=== PATIENT | female | born 1940 | race Caucasian/White ===

== ENCOUNTER 2016-09-17 08:37 | Outpatient (CLI) | payer MEDICARE, OTHER | END 2016-09-17 08:38 | disposition home or self-care (01) | DX: E78.2 Mixed hyperlipidemia (principal) ==

== ENCOUNTER 2016-11-21 16:36 | Emergency (ER) | payer MEDICARE, OTHER ==
[2016-11-21] MEDS ORDERED: HEPARIN 5,000 UNIT/ML VIAL IVP ONE (16:53)
[2016-11-21] MEDS ORDERED: NITROGLYCERIN SL 0.4 MG TABLET SL STA ×2 (16:53→17:38)
[2016-11-21] MEDS ORDERED: ASPIRIN CHEW 81 MG TABLET PO STA (16:53)
[2016-11-21] MEDS ORDERED: SODIUM CHLORIDE 0.9% 1,000 ML IV ONE (16:53)
[2016-11-21] MEDS ORDERED: HEPARIN 5,000 UNIT/ML VIAL ONE (16:58)
[2016-11-21] MEDS ORDERED: ASPIRIN CHEW 81 MG TABLET ONE (16:58)
[2016-11-21] MEDS ORDERED: NITROGLYCERIN SL 0.4 MG TABLET SL ONE (16:58)
[2016-11-21] MEDS ORDERED: HEPARIN 25,000 UNITS/500 ML 500 ML IV STA (17:01)
[2016-11-21] MEDS ORDERED: HEPARIN 25,000 UNITS/500 ML 500 ML IV ONE (17:04)
[2016-11-21] MEDS ORDERED: CLOPIDOGREL 300 MG TABLET PO STA (17:07)
[2016-11-21] MEDS ORDERED: CLOPIDOGREL 300 MG TABLET PO ONE (17:07)
== END 2016-11-21 17:20 | disposition short-term general hospital (02) ==
DX: I21.3 ST elevation (STEMI) myocardial infarction of unspecified site (principal); I10 Essential (primary) hypertension; E78.00 Pure hypercholesterolemia, unspecified; M19.90 Unspecified osteoarthritis, unspecified site
CPT/HCPCS: 36415; 71010; 80053; 83690; 84484; 85025; 93005; 93010; 96374; 96376; 99284; 99285; A9270

== ENCOUNTER 2016-11-21 17:26 | Outpatient (CLI) | payer MEDICARE, OTHER | END 2016-11-21 17:27 | disposition short-term general hospital (02) | DX: I21.3 ST elevation (STEMI) myocardial infarction of unspecified site (principal) | CPT/HCPCS: A0425; A0427 ==

== ENCOUNTER 2016-12-02 08:28 | Outpatient (CLI) | payer MEDICARE, OTHER | END 2016-12-02 08:29 | disposition home or self-care (01) | DX: I25.10 Atherosclerotic heart disease of native coronary artery without angina pectoris (principal); I48.0 Paroxysmal atrial fibrillation ==

== ENCOUNTER 2016-12-19 09:07 | Outpatient (CLI) | payer MEDICARE, OTHER | END 2016-12-19 09:08 | disposition home or self-care (01) | DX: I34.0 Nonrheumatic mitral (valve) insufficiency (principal) ==

== ENCOUNTER 2017-02-16 08:23 | Outpatient (CLI) | payer MEDICARE, OTHER ==
[2017-02-16 12:42] LABS: BASOPHILS % (AUTO) 0.7 %; EOSINOPHILS # (AUTO) 0.3 10^3/uL (0.0-0.7); EOSINOPHILS % (AUTO) 4.3 %; HCT - HEMATOCRIT 31.3 % (37.0-47.0); HGB - HEMOGLOBIN 10.3 g/dL (12.0-16.0); LYMPHOCYTES # (AUTO) 2.2 10^3/uL (1.5-3.5); LYMPHOCYTES % (AUTO) 31.3 %; MEAN CORPUSCULAR HEMOGLOBIN 29.7 pg (27.0-31.0); MEAN CORPUSCULAR HGB CONC 32.7 g/dL (32.0-36.0); MEAN CORPUSCULAR VOLUME 90.9 fL (81.0-99.0); MONOCYTES # (AUTO) 0.7 10^3/uL (0.0-1.0); MONOCYTES % (AUTO) 10.1 %; NEUTROPHILS # (AUTO) 3.7 10^3/uL (1.5-6.6); NEUTROPHILS % (AUTO) 53.6 %; NUCLEATED RED BLOOD CELLS AUTO 0.1 /100WBC; RED BLOOD COUNT 3.45 10^6/uL (4.20-5.40); RED CELL DISTRIBUTION WIDTH 14.2 % (12.0-15.0)
[2017-02-16 13:05] LABS: ALBUMIN/GLOBULIN RATIO 1.2 (1.0-2.2); BILIRUBIN,TOTAL 0.7 mg/dL (0.2-1.0); BUN - BLOOD UREA NITROGEN 17 mg/dL (6-20); CALCIUM 8.8 mg/dL (8.5-10.3); CARBON DIOXIDE - CO2 26 mmol/L (21-32); CHLORIDE 103 mmol/L (101-111); CHOL/HDL RATIO 2.9 (<4.4); CHOLESTEROL 137 mg/dL; CREATININE 0.8 mg/dL (0.4-1.0); GFR - MDRD 70 (>89); GLUCOSE 97 mg/dL (70-100); HDL CHOLESTEROL 47 mg/dL; LDL/HDL RATIO 1.5 (<4.4); POTASSIUM 3.9 mmol/L (3.5-5.0); SODIUM 138 mmol/L (135-145); TOTAL PROTEIN 6.7 g/dL (6.7-8.2); TRIGLYCERIDES 94 mg/dL; VLDL CHOLESTEROL 19 mg/dL
== END 2017-02-16 08:24 | disposition home or self-care (01) ==
LOC: LAB.WCP 08:23
PROVIDERS: ATTEND Physician Assistant
DX: I25.5 Ischemic cardiomyopathy (principal); I25.810 Atherosclerosis of coronary artery bypass graft(s) without angina pectoris; Z95.1 Presence of aortocoronary bypass graft; I48.0 Paroxysmal atrial fibrillation
CPT/HCPCS: 36415; 80053; 80061; 85025

== ENCOUNTER 2017-02-23 17:21 | Observation (INO) | payer MEDICARE, OTHER ==
--- NOTE | 2017-02-23 17:54 | ED Physician Documentation ---
PD HPI DYSPNEA - Stated complaint Stated Complaint: LT LEG SWELLING - Chief complaint Chief Complaint: Cardiac - History obtained from History obtained from: Patient - History of Present Illness Timing - onset: Other (6 weeks out from a three-vessel coronary bypass. Was on Lasix preoperatively but is not currently. Over last 3 days after camping trip she developed left greater than right pedal edema with some dyspnea on exertion and orthopnea not associated with increased pain. She has not been checking her weights routinely.) Review of Systems Ten Systems: 10 systems reviewed and negative Constitutional: denies: Fever, Chills Cardiac: reports: Pedal edema. denies: Chest pain / pressure, Palpitations, Calf pain Respiratory: reports: Dyspnea. 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 HAND: Tubal ligation HEENT: Tonsil/Adenoidectomy - Present Medications Home Medications: Ambulatory Orders Medication Instructions Recorded Confirmed Amiodarone [Pacerone] 200 mg ORAL BID 02/23/17 02/23/17 Aspirin Chewable [St Zia 81 mg ORAL DAILY 02/23/17 02/23/17 Aspirin] Atorvastatin [Lipitor] 40 mg ORAL DAILY 02/23/17 02/23/17 Clopidogrel [Plavix] 75 mg ORAL DAILY 02/23/17 02/23/17 Lisinopril 2.5 mg ORAL BID 02/23/17 02/23/17 Metoprolol Tartrate 25 mg ORAL BID 02/23/17 02/23/17 Pantoprazole [Protonix] 40 mg ORAL DAILY 02/23/17 02/23/17 - Allergies Allergies/Adverse Reactions: Allergies Allergy/AdvReac Type Severity Reaction Status Date / Time Sulfa (Sulfonamide Allergy Intermediate Rash Verified 11/21/16 16:45 Antibiotics) - Social History Does the pt smoke?: No Smoking Status: Never smoker Does the pt drink ETOH?: Yes Does the pt have substance abuse?: No - Immunizations Immunizations are current?: No Immunizations: TDAP >10years/unknown - POLST Patient has POLST: No PD ED PE NORMAL - Vitals Vital signs reviewed: Yes - General General: Alert and oriented X 3, No acute distress - Neck Neck: Other (++JVD) - Cardiac Cardiac: RRR, No murmur - Respiratory Respiratory: Other (Mild basilar rales) - Abdomen Abdomen: Non tender - Extremities Extremities: Other (Mod L>R pedal edema, no calf TTP) - Neuro Neuro: Alert and oriented X 3, Normal speech - Psych Psych: Normal mood, Normal affect Results - Vitals Vitals: Vital Signs - 24 hr 02/23/17 02/23/17 02/23/17 17:29 18:37 19:20 Temperature 36 C L Heart Rate 76 77 90 Respiratory 14 18 21 Rate Blood Pressure 128/74 123/69 142/87 H O2 Saturation 100 94 87 L 02/23/17 19:31 Temperature Heart Rate 91 Respiratory 20 Rate Blood Pressure 142/87 H O2 Saturation 97 Oxygen O2 Source Nasal cannula Oxygen Flow Rate 2 - EKG (time done) 1817 Rate: Rate (enter#) (77) Rhythm: NSR (with PVCs) Winifred: LAD Intervals: Wide QRS Ischemia: No: ST elevation c/w ischemia Computer interpretation: Agree with computer - Labs Labs: Laboratory Tests 02/23/17 02/23/17 02/23/17 18:24 18:24 18:24 WBC RBC Hgb Hct MCV MCH MCHC RDW Plt Count MPV Neut # Lymph # [place] # Eos # Baso # Absolute Nucleated RBC Nucleated RBCs Sodium 139 Potassium 3.8 Chloride 104 Carbon Dioxide 26 Anion Gap 9.0 BUN 15 Creatinine 0.7 Estimated GFR (MDRD) 81 L Glucose 130 H Calcium 9.0 Troponin I 0.08 B-Natriuretic Peptide 1330 H 02/23/17 19:19 WBC 8.4 RBC 3.87 L Hgb 11.0 L Hct 34.9 L MCV 90.2 MCH 28.4 MCHC 31.4 L RDW 14.3 Plt Count 400 MPV 8.5 Neut # 5.4 Lymph # 1.9 [place] # 1.0 Eos # 0.1 Baso # 0.1 Absolute Nucleated RBC 0.00 Nucleated RBCs 0.0 Sodium Potassium Chloride Carbon Dioxide Anion Gap BUN Creatinine Estimated GFR (MDRD) Glucose Calcium Troponin I B-Natriuretic Peptide - Rads (name of study) 2v chest Radiology: EMP read contemporaneously DVT doppler Radiology: EMP read contemporaneously PD MEDICAL DECISION MAKING - ED course ED course: 76-year-old woman 6 weeks postop from coronary bypass presents with orthopnea, dyspnea on exertion, and pedal edema all consistent with CHF. She recently stopped her Lasix and although she says she didn't eat any differently, recently went camping, so may have increased her salt. She was not hypoxic on arrival but did have significant episodes of hypoxemia in the department going as low as 85% on room air, so spoke with Dr. Cole for admission at 715 p.m. Departure - Departure Disposition: ED Place in Observation Clinical Impression: Hypoxemia Congestive heart failure Qualifiers: Congestive heart failure type: unspecified congestive heart failure type Congestive heart failure chronicity: acute Qualified Code(s): I50.9 - Heart failure, unspecified Condition: Serious Discharge Date/Time: 02/23/17 20:34
--- NOTE | 2017-02-23 18:26 | XRAY Preliminary Report ---
Exam: XR Chest 2 View PA/LAT IMPRESSION: Large heart with small bilateral pleural effusions and overlying atelectasis. [facility] SITE ID: [id number]
--- NOTE | 2017-02-23 18:29 | XRAY Report ---
EXAM: CHEST RADIOGRAPHY EXAM DATE: 02/23/2017 06:05 PM. CLINICAL HISTORY: Dyspnea. COMPARISON: 11/21/2016. TECHNIQUE: 2 views. FINDINGS: Lungs/Pleura: New bilateral small pleural effusions with mild atelectasis. No infiltrates noted. No p neumothorax. Normal volumes. Mediastinum: Prior bypass. Large heart. Other: No compression fractures. IMPRESSION: Large heart with small bilateral pleural effusions and overlying atelectasis. [facility] Referring Provider Line: [phone] SITE ID: [id number]
[2017-02-23 18:49] LABS: CREATININE 0.7 mg/dL (0.4-1.0); POTASSIUM 3.8 mmol/L (3.5-5.0)
[2017-02-23] MEDS ORDERED: POTASSIUM BICARB 25 MEQ TABLET PO STA (19:02)
[2017-02-23] MEDS ORDERED: FUROSEMIDE 40 MG/4 ML VIAL IVP STA (19:02)
[2017-02-23] MEDS ORDERED: FUROSEMIDE 40 MG/4 ML VIAL ONE (19:08)
[2017-02-23] MEDS ORDERED: POTASSIUM BICARB 25 MEQ TABLET PO ONE (19:08)
--- NOTE | 2017-02-23 19:18 | Ultrasound Preliminary Report ---
Exam: US Duplex Ext Veins Bilateral IMPRESSION: No evidence for deep venous thrombosis bilaterally. [facility] SITE ID: [id number]
--- NOTE | 2017-02-23 19:21 | Ultrasound Report ---
EXAM: BILATERAL LOWER EXTREMITY VENOUS ULTRASOUND EXAM DATE: 02/23/2017 06:58 PM. CLINICAL HISTORY: Post surg pedal edema. COMPARISON: None. TECHNIQUE: Real-time sonographic vascular imaging was performed by the cable assembler and swager through the lower extremities utilizing both color-flow and Doppler spectral analysis. Multiple hvac sales representative static i mages were saved for review. FINDINGS: Right: Common Femoral Vein (CFV): Normal. CFV-GSV Junction: Normal. Profunda Femoral Vein (PFV): Normal. Femoral Vein (FV) Prox: Normal. Femoral Vein (FV) Mid: Normal. Femoral Vein (FV) Dist: Normal. Popliteal Vein: Normal. Posterior Tibial Veins: Normal. Peroneal Veins: Normal. Left: Common Femoral Vein (CFV): Normal. CFV-GSV Junction: Normal. Profunda Femoral Vein (PFV): Normal. Femoral Vein (FV) Prox: Normal. Femoral Vein (FV) Mid: Normal. Femoral Vein (FV) Dist: Normal. Popliteal Vein: Normal. Posterior Tibial Veins: Normal. Peroneal Veins: Normal. Other: None. IMPRESSION: No evidence for deep venous thrombosis bilaterally. [facility] Referring Provider Line: [phone] SITE ID: [id number]
[2017-02-23 19:24] LABS: BASOPHILS # (AUTO) 0.1 10^3/uL (0.0-0.1); EOSINOPHILS # (AUTO) 0.1 10^3/uL (0.0-0.7); EOSINOPHILS % (AUTO) 1.1 %; HCT - HEMATOCRIT 34.9 % (37.0-47.0); LYMPHOCYTES # (AUTO) 1.9 10^3/uL (1.5-3.5); LYMPHOCYTES % (AUTO) 22.9 %; MEAN CORPUSCULAR HEMOGLOBIN 28.4 pg (27.0-31.0); MEAN CORPUSCULAR HGB CONC 31.4 g/dL (32.0-36.0); MEAN CORPUSCULAR VOLUME 90.2 fL (81.0-99.0); MEAN PLATELET VOLUME 8.5 fL (7.9-10.8); MONOCYTES % (AUTO) 11.5 %; NEUTROPHILS # (AUTO) 5.4 10^3/uL (1.5-6.6); NEUTROPHILS % (AUTO) 63.5 %; RED BLOOD COUNT 3.87 10^6/uL (4.20-5.40); RED CELL DISTRIBUTION WIDTH 14.3 % (12.0-15.0); UNCORRECTED WHITE BLOOD COUNT 8.4 x10^3/uL; WHITE BLOOD COUNT 8.4 x10^3/uL (4.8-10.8)
[2017-02-23] MEDS ORDERED: SODIUM CHLORIDE FLUSH 0.9% 10 ML SYRINGE IVP PRN (20:01)
[2017-02-23] MEDS ORDERED: ONDANSETRON 4 MG/2 ML VIAL IVP PRN (20:01)
[2017-02-23] MEDS ORDERED: ACETAMINOPHEN 325 MG TABLET PO PRN (20:01)
--- NOTE | 2017-02-23 20:19 | HISTORY & PHYSICAL EXAMINATION ---
Chief Complaint - Chief Complaint Chief Complaint: shortness of breath History of Present Illness - Admitted From Admitted From:: ed - History Obtained From Records Reviewed: EMR History obtained from: the patient and records Exam Limitations: none - History of Present Illness HPI Comment/Other: this 76-year-old female had a a prior ST elevation [place] in November of 2016.,, and underwent a stent placement at [facility]. She subsequently was transferred to [facility] ,, where she underwent a three-vessel coronary artery bypass graft about 6 weeks ago. She was started on several medications but was weaned off of her Lasix prior to discharge. she believes she had postop atrial fibrillation as well. She recently went camping, but began to experience shortness of breath and orthopnea, as well as peripheral edema for the last 2 days. She says she has felt increased fatigue, and slight nausea, significant dyspnea with exertion, as well as orthopnea. She has been feeling cold ever since she left the hospital. She has had a mild headache. She had some vision issues after surgery , but says those have resolved. Her appetite has been good. She denies any chest pain or palpitations, but is still sore from her thoracotomy..They harvested veins in her left lower extremity, and those sites are healed, but also still sore. She has noticed some increased edema of her ankles, left greater than right. She says they have been eating the same food on their camping trip as they normally, and she does not eat added salt. Otherwise, she denies new eye or ear symptoms,, fever, sore throat, cough, difficulty chewing or swallowing,, abdominal pain, vomiting, diarrhea or constipation, or dysuria. .. Oxygen saturation on room air in the emergency room was 85%. BNP is elevated. Initial troponin is normal. EKG does not show any new ischemic changes Past medical history: Hyperglycemia Osteoporosis Hypertension Aortic stenosis Colon polyps restless leg syndrome Coronary artery disease, ST elevation [place] in November of 2016, status post stenting, , and two-vessel CABG in December 2016 Hyperlipidemia medications: Metoprolol 25 mg by mouth twice a day Lipitor 40 mg daily lisinopril 2.5 mg twice a day Plavix 75 mg daily Amiodarone 200 mg twice a day Protonix 40 mg daily Aspirin 81 mg daily Allergies: Sulfa. family history: mother after bilateral clotting of her kidneys. Father with some type of cancer in his adonis.. There is heart disease on her fat. She has one sister who is alive an I believe she has 3 children, who are alive and well. social history: she denies any tobacco history, and She drinks about one glass of wine. She was born in [place], but now lives here on [facility] with her . 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: reports: Tubal ligation Cardiovascular: reports: CABG HEENT: reports: Tonsil/Adenoidectomy - POLST Patient has POLST: No Meds/Allgy - Home Medications Home Medications: Ambulatory Orders Medication Instructions Recorded Confirmed Amiodarone [Pacerone] 200 mg ORAL BID 02/23/17 02/23/17 Aspirin Chewable [St Zia 81 mg ORAL DAILY 02/23/17 02/23/17 Aspirin] Atorvastatin [Lipitor] 40 mg ORAL DAILY 02/23/17 02/23/17 Clopidogrel [Plavix] 75 mg ORAL DAILY 02/23/17 02/23/17 Lisinopril 2.5 mg ORAL BID 02/23/17 02/23/17 Metoprolol Tartrate 25 mg ORAL BID 02/23/17 02/23/17 Pantoprazole [Protonix] 40 mg ORAL DAILY 02/23/17 02/23/17 - Allergies Allergies/Adverse Reactions: Allergies Allergy/AdvReac Type Severity Reaction Status Date / Time Sulfa (Sulfonamide Allergy Intermediate Rash Verified 11/21/16 16:45 Antibiotics) Exam - Vital Signs Vital Signs: Vital Signs x48h Temp Pulse Resp BP Pulse Ox 02/23/17 19:31 91 20 142/87 H 97 02/23/17 19:20 90 21 142/87 H 87 L 02/23/17 18:37 77 18 123/69 94 02/23/17 17:29 36 C L 76 14 128/74 100 on exam, she is a well-developed well-nourished female, who appears younger than her stated age.. Head: Normocephalic,, atraumatic. Eyes: PERRLA, EOMI, anicteric. Ears: TMs and canals are clear. Pharynx: Is clear. She has full upper and lower dentures. Neck: Is supple, without obvious lymphadenopathy, JVD, thyromegaly, bruits. Cardiac: Shows regular rate and rhythm, with normal S1 and S2. No murmurs, rubs , gallops are noted. Midline thoracotomy scar is well-healed, the area is warp scouring vat tender. Lungs: Show fine crackles about one third the way up, and both posterior lung valdez.. No rhonchi or wheezes are noted. There is no accessory muscle use.. Abdomen: Is soft and nontender, without masses.. Bowel sounds are active. Extremities: There is a trace edema at both ankles, left greater than right.. The venectomy scars on the left thigh are well-healed.. Neurologic: Is grossly nonfocal. Skin exam: Does not show obvious rashes, or other worrisome lesions. Conclusion/Plan - Problem List (1) Congestive heart failure Qualifiers: Congestive heart failure type: unspecified congestive heart failure type Congestive heart failure chronicity: acute Qualified Code(s): I50.9 - Heart failure, unspecified (3) CAD (coronary artery disease), [place] coronary artery Qualifiers: [place] vs. transplanted heart: [place] heart Associated angina: without angina Qualified Code(s): I25.10 - Atherosclerotic heart disease of [place] coronary artery without angina pectoris - Lab Results Fish Bones: 02/23/17 19:19 02/23/17 18:24 Other Lab Results: BNP is elevated at 1330 Troponin is normal at 0.08 Lipid panel from February 16: Total cholesterol 137, VLDL 19, LDL 71, HDL 47 December 02: TSH is normal at 1.42 ower extremity Doppler colon is read as nl chest x-ray: Shows cardiomegaly with small bilateral pleural effusions and overlying atelectasis. No definite infiltrates. Evidence of prior bypass noted. EKG shows sinus rhythm at a rateof 77 ,, with left axis deviation, occasional PVCs, low voltage, nonspecific intraventricular conduction delay December,: Echocardiogram: Left ventricular systolic function with ejection fraction of 65% normal right ventricle,, mild mitral regurgitation. - Other Other Results/Comments: assessment and plan: #1. Cardiac. -Patient presents with dyspnea and hypoxia, consistent with new onset congestive heart failure. She is status post recent [place] and bypass surgery. She appears to be on an appropriate medical regimen, but is not on a diuretic. It is unclear if she has an having increased salt intake during her recent travels, but she does not think so. -Admit to telemetry, for closer observation. -Check serial enzymes. -Diurese with IV Lasix. -Monitor electrolytes. -Oxygen when necessary -Continue metoprolol, Lipitor, lisinopril, Plavix, amiodarone,, aspirin #2. endocrine. History of hyperglycemia. Monitor Accu-Cheks. #3. Osteoporosis. Continue calcium and vitamin D. #4. History of hypertension. Monitor closely. Continue metoprolol, aspirin, lisinopril,, aspirin #5. History of restless leg syndrome. #6. CODE STATUS:full code,, though she would not want long-term life support. #7. DVT prophylaxis: Subcutaneous heparin. THIS VISIT TOOK APPROXIMATELY 60 MINUTES to review the case with the er blank, review her old records, INTERVIEW AND EXAMINE THE PATIENT,, AND WRITE ORDERS. Issues/Core Measures - Anticipated LOS Anticipated Stay Length: Less than 2 midnights - DVT/VTE - Prophylaxis VTE/DVT Device ordered at admit?: No VTE/DVT Prophylaxis med ordered at admit?: Yes
[2017-02-23] MEDS ORDERED: FUROSEMIDE 20 MG/2 ML VIAL IVP SCH (21:00)
[2017-02-23] MEDS: SODIUM CHLORIDE FLUSH 0.9% 10 ML SYRINGE IVP SCH (22:00)
[2017-02-23] MEDS: HEPARIN 5,000 UNIT/ML VIAL SUBQ SCH (22:14)
[2017-02-24] MEDS: SODIUM CHLORIDE FLUSH 0.9% 10 ML SYRINGE IVP SCH ×2 (05:40→09:20)
[2017-02-24 07:25] LABS: BASOPHILS # (AUTO) 0.1 10^3/uL (0.0-0.1); BASOPHILS % (AUTO) 1.2 %; EOSINOPHILS # (AUTO) 0.2 10^3/uL (0.0-0.7); EOSINOPHILS % (AUTO) 2.2 %; HCT - HEMATOCRIT 32.9 % (37.0-47.0); HGB - HEMOGLOBIN 10.7 g/dL (12.0-16.0); LYMPHOCYTES # (AUTO) 1.7 10^3/uL (1.5-3.5); LYMPHOCYTES % (AUTO) 21.7 %; MEAN CORPUSCULAR HEMOGLOBIN 29.1 pg (27.0-31.0); MEAN CORPUSCULAR HGB CONC 32.4 g/dL (32.0-36.0); MEAN CORPUSCULAR VOLUME 89.8 fL (81.0-99.0); MEAN PLATELET VOLUME 8.7 fL (7.9-10.8); MONOCYTES # (AUTO) 0.9 10^3/uL (0.0-1.0); MONOCYTES % (AUTO) 10.8 %; NEUTROPHILS # (AUTO) 5.1 10^3/uL (1.5-6.6); NEUTROPHILS % (AUTO) 64.1 %; RED BLOOD COUNT 3.67 10^6/uL (4.20-5.40); RED CELL DISTRIBUTION WIDTH 14.5 % (12.0-15.0)
[2017-02-24] MEDS ORDERED: POLYETHYLENE GLYCOL 3350 17 GM PACKET PO SCH (09:00)
[2017-02-24] MEDS ORDERED: FUROSEMIDE 20 MG/2 ML VIAL IVP SCH (09:00)
[2017-02-24] MEDS: HEPARIN 5,000 UNIT/ML VIAL SUBQ SCH (09:20)
[2017-02-24] MEDS ORDERED: CLOPIDOGREL 75 MG TABLET PO SCH (10:00)
[2017-02-24 11:38] VITALS: BP 112/72
--- NOTE | 2017-02-24 12:38 | Discharge Plan ---
Discharge Plan Disposition: 01 Home, Self Care Condition: Good Prescriptions: Furosemide [Lasix] 40 mg PO DAILY #30 tablet Potassium Chloride 10 meq PO DAILY #60 capsule.er Diet: Low Sodium Activity Restrictions: Activity as Tolerated Shower Restrictions: No Driving Restrictions: No Instruction Topics: Heart Failure Meds Control, Heart Failure, Heart Failure Warning Signs, Heart Failure Tracking Weight, Heart Failure Being Active, Heart Failure Coping, Heart Failure Diet Changes, Heart Failure Evaluate, Heart Failure Helpful Meds, ED CHF General Additional Instructions or Follow Up instructions: Follow up with your brine supervisor. Call for an appt if you do not hear from them by noon tomorrow. No Smoking: If you smoke, Please STOP! Call for help. Follow-up with: Janina Davalos PA-C [Primary Care Provider] -
--- NOTE | 2017-02-25 07:37 | DISCHARGE SUMMARY ---
DATE OF ADMISSION: 02/23/2017 DATE OF DISCHARGE: 02/24/2017 PRIMARY ARE PHYSICIAN: Janina Davalos P.A.-C ACT TUTOR: Dwight Villafuerte M.D. CONSULTATIONS: None. SPECIAL PROCEDURES: The echocardiogram preliminary report findings were the patient had an EF of 45% to 50%, which according to the telephone consultation with Dwight Villafuerte M.D., has improved since her post-bypass EF, in which she had an intrasurgery coronary myocardial infarction and 40%, bu t was less than what she had on 12/25 of 65% to 70%. The sequence of her echocardiograms and the car diac stenting followed by the bypass surgery is in question. The patient had a moderate increase in the left atrial volume index. The right atrial size was normal, and there was mild aortic valve scle rosis, with trace aortic regurgitation and no evidence of aortic stenosis. Regarding the mitral valv e, there was moderate to severe mitral regurgitation with an ERO of 0.21 cm2 and regurgitant volume 4 2 mL. There was mild tricuspid, with no stenosis. RVSP at rest was 38 mmHg. The pulmonic valve was not impaired. HOSPITAL COURSE AND MANAGEMENT: The initial presentation, hospital emergency department evaluation, and hospitalist plan are well described in the history and physical. See the copy of the same. In [facility], the patient is a 75-year-old female who had an ST elevation myocardial infarction in November of 2016. She had stent placement at [facility]. She was transferred to [facility]. She u nderwent three-vessel coronary artery approximately six weeks previous to this admission. The patien flavio, during her followup, was weaned off her Lasix. The last couple of days, she went camping. She meek d shortness of breath and orthopnea. She also had increased leg edema. She felt fatigued, with some nausea. She was seen in the emergency department and was found to have new onset CHF. She was star charlie on a diuretic and placed under observation. She was on oxygen initially, but moved soon onto hari m air. She felt much better the following morning. After the echocardiogram, she was discharged albert to follow up with her PCP, Janina Davalos P.A.-C. Dwight Villafuerte M.D., was consulted by telephone, and he agreed to expedite an appointment for this delightful lady. ADMISSION DIAGNOSES The patient's admission diagnoses were: 1. Congestive heart failure. 2. Coronary artery disease. 3. Osteoporosis. 4. Hypertension. 5. Restless leg syndrome. DISCHARGE DIAGNOSES The patient's discharge diagnoses were: 1. Congestive heart failure. 2. Coronary artery disease: Status post recent myocardial infarction, stent, and bypass surgery. 3. Mild hyperglycemia: A1c is pending. 4. Osteoporosis: Continue treatment calcium and vitamin D. 5. Hypertension: Continue outpatient monitoring and assess the effectiveness of metoprolol and lisin opril. FOLLOWUP: The patient is to follow up as noted above. TIME SPENT: Less than 30 minutes. The patient was examined on the day of discharge. JOB #: [id number] EXT JOB #:[id number]
== END 2017-02-24 13:17 | disposition home or self-care (01) ==
LOC: ED 17:21 → MS 20:01
PROVIDERS: ADMIT Internal Medicine; ATTEND Internal Medicine
DX: I11.0 Hypertensive heart disease with heart failure (principal); I50.9 Heart failure, unspecified; I25.10 Atherosclerotic heart disease of native coronary artery without angina pectoris; R73.9 Hyperglycemia, unspecified; R09.02 Hypoxemia; M81.0 Age-related osteoporosis without current pathological fracture; E78.5 Hyperlipidemia, unspecified; I34.0 Nonrheumatic mitral (valve) insufficiency; G25.81 Restless legs syndrome; I25.2 Old myocardial infarction; Z79.82 Long term (current) use of aspirin; Z79.02 Long term (current) use of antithrombotics/antiplatelets; Z95.5 Presence of coronary angioplasty implant and graft; Z95.1 Presence of aortocoronary bypass graft
CPT/HCPCS: 36415; 71020; 80048; 83735; 83880; 84484; 85025; 93005; 93306; 93970; 96372; 96374; 96376; 99284; 99285; A9270; G0378; 99283

== ENCOUNTER 2017-03-04 08:01 | Outpatient (CLI) | payer MEDICARE, OTHER ==
[2017-03-04 08:33] LABS: BASOPHILS # (AUTO) 0.1 10^3/uL (0.0-0.1); BASOPHILS % (AUTO) 1.2 %; EOSINOPHILS # (AUTO) 0.2 10^3/uL (0.0-0.7); EOSINOPHILS % (AUTO) 3.2 %; HCT - HEMATOCRIT 32.1 % (37.0-47.0); HGB - HEMOGLOBIN 10.6 g/dL (12.0-16.0); LYMPHOCYTES # (AUTO) 1.8 10^3/uL (1.5-3.5); LYMPHOCYTES % (AUTO) 25.8 %; MEAN CORPUSCULAR HEMOGLOBIN 28.8 pg (27.0-31.0); MEAN CORPUSCULAR HGB CONC 32.9 g/dL (32.0-36.0); MEAN CORPUSCULAR VOLUME 87.4 fL (81.0-99.0); MEAN PLATELET VOLUME 8.2 fL (7.9-10.8); MONOCYTES # (AUTO) 0.8 10^3/uL (0.0-1.0); MONOCYTES % (AUTO) 11.3 %; NEUTROPHILS # (AUTO) 4.1 10^3/uL (1.5-6.6); NEUTROPHILS % (AUTO) 58.5 %; RED BLOOD COUNT 3.67 10^6/uL (4.20-5.40); RED CELL DISTRIBUTION WIDTH 14.8 % (12.0-15.0)
[2017-03-04 08:51] LABS: BUN - BLOOD UREA NITROGEN 19 mg/dL (6-20); CALCIUM 8.8 mg/dL (8.5-10.3); CARBON DIOXIDE - CO2 30 mmol/L (21-32); CHLORIDE 101 mmol/L (101-111); CHOL/HDL RATIO 2.9 (<4.4); CHOLESTEROL 141 mg/dL; CREATININE 0.9 mg/dL (0.4-1.0); GFR - MDRD 61 (>89); GLUCOSE 115 mg/dL (70-100); HDL CHOLESTEROL 48 mg/dL; LDL/HDL RATIO 1.6 (<4.4); POTASSIUM 4.5 mmol/L (3.5-5.0); SODIUM 138 mmol/L (135-145); TRIGLYCERIDES 72 mg/dL; VLDL CHOLESTEROL 14 mg/dL
== END 2017-03-04 08:02 | disposition home or self-care (01) ==
LOC: LAB 08:01
PROVIDERS: ATTEND Internal Medicine Interventional Cardiology
DX: R06.02 Shortness of breath (principal); E78.5 Hyperlipidemia, unspecified
CPT/HCPCS: 36415; 80048; 80061; 83880; 85025

== ENCOUNTER 2017-04-09 07:35 | Outpatient (CLI) | payer MEDICARE, OTHER ==
[2017-04-09 07:54] LABS: BASOPHILS # (AUTO) 0.1 10^3/uL (0.0-0.1); BASOPHILS % (AUTO) 1.5 %; EOSINOPHILS # (AUTO) 0.2 10^3/uL (0.0-0.7); EOSINOPHILS % (AUTO) 3.2 %; HCT - HEMATOCRIT 33.6 % (37.0-47.0); HGB - HEMOGLOBIN 10.9 g/dL (12.0-16.0); LYMPHOCYTES # (AUTO) 1.8 10^3/uL (1.5-3.5); MEAN CORPUSCULAR HEMOGLOBIN 27.5 pg (27.0-31.0); MEAN CORPUSCULAR HGB CONC 32.5 g/dL (32.0-36.0); MEAN CORPUSCULAR VOLUME 84.7 fL (81.0-99.0); MEAN PLATELET VOLUME 8.7 fL (7.9-10.8); MONOCYTES # (AUTO) 0.6 10^3/uL (0.0-1.0); MONOCYTES % (AUTO) 10.1 %; NEUTROPHILS % (AUTO) 53.2 %; RED BLOOD COUNT 3.96 10^6/uL (4.20-5.40); RED CELL DISTRIBUTION WIDTH 15.5 % (12.0-15.0); UNCORRECTED WHITE BLOOD COUNT 5.6 x10^3/uL; WHITE BLOOD COUNT 5.6 x10^3/uL (4.8-10.8)
[2017-04-09 08:37] LABS: ALBUMIN/GLOBULIN RATIO 1.2 (1.0-2.2); BILIRUBIN,TOTAL 0.5 mg/dL (0.2-1.0); CREATININE 0.8 mg/dL (0.4-1.0); POTASSIUM 4.2 mmol/L (3.5-5.0); TOTAL PROTEIN 6.9 g/dL (6.7-8.2)
== END 2017-04-09 07:36 | disposition home or self-care (01) ==
LOC: LAB 07:35
PROVIDERS: ATTEND Internal Medicine Interventional Cardiology
DX: I25.810 Atherosclerosis of coronary artery bypass graft(s) without angina pectoris (principal); R06.09 Other forms of dyspnea; Z95.1 Presence of aortocoronary bypass graft; I25.5 Ischemic cardiomyopathy; I48.0 Paroxysmal atrial fibrillation; I34.0 Nonrheumatic mitral (valve) insufficiency
CPT/HCPCS: 36415; 80053; 83880; 85025

== ENCOUNTER 2017-07-20 17:23 | Outpatient (CLI) | payer MEDICARE, OTHER ==
--- NOTE | 2017-07-21 12:40 | XRAY Report ---
LEFT HIP AND PELVIS: 07/20/2017 CLINICAL INDICATION: Pain. FINDINGS: Frontal view of the hips and pelvis and frogleg lateral view of the left hip demonstrate n o evidence of acute fracture or dislocation. Minimal osteoarthritis is present. Surgical clips are seen in the medial soft tissues of the proximal left thigh. IMPRESSION: MINIMAL OSTEOARTHRITIS. NO EVIDENCE OF FRACTURE. JOB #: [id number] EXT JOB #:[id number]
== END 2017-07-20 17:24 | disposition home or self-care (01) ==
LOC: DI 17:23
PROVIDERS: ATTEND Physician Assistant Medical
DX: M16.12 Unilateral primary osteoarthritis, left hip (principal)

== ENCOUNTER 2017-07-25 14:40 | Outpatient (CLI) | payer MEDICARE, OTHER ==
--- NOTE | 2017-07-26 05:43 | MRI Report ---
EXAM: MRI LUMBAR SPINE WITHOUT CONTRAST EXAM DATE: 07/25/2017 03:50 PM. CLINICAL HISTORY: Radiculopathy, lumbar region. COMPARISON: None. TECHNIQUE: Multiplanar, multisequence T1-weighted and fluid-sensitive sequences of the lumbar spine f rom T12 to S1 without contrast. Other: None. FINDINGS: Spinal Cord: The conus terminates at L1. The conus medullaris and cauda equina are unremarkable. Alignment: Retrolisthesis at L2-L3 measures 23 mm. Grade 1 anterolisthesis at L4-L5 also measures 2 3 mm. Bone Marrow: Five [id number] lumbar vertebral bodies are assumed. Mild type 1 Modic endplate joellen nges are noted at L4-L5. Disk Levels/Facets: T12-L1: Unremarkable. L1-L2: There is a mild disk bulge resulting mild bilateral foraminal narrowing without spinal canal s tenosis. L2-L3: There is mild left foraminal narrowing due to a left foraminal protrusion. The spinal canal an d right foramen are patent. L3-L4: A disk bulge and bilateral facet arthropathy result in mild bilateral foraminal narrowing. The spinal canal is patent. L4-L5: Anterolisthesis is present at this level with uncovering of the disk. A superimposed left para central extrusion is seen with superior migration. This causes mild spinal canal stenosis and medial displacement of the descending L5 nerve root. Facet arthropathy results in moderate bilateral foramin al narrowing, left greater than right. L5-S1: A mild disk bulge is present with moderate bilateral facet arthropathy. This results in mild l eft foraminal narrowing without spinal canal stenosis. Musculature: There is moderate diffuse fatty atrophy of the posterior paraspinal muscles without intr amuscular edema. Other: The partially visualized retroperitoneum is unremarkable. IMPRESSION: 1. Grade 1 anterolisthesis at L4-L5 with uncovering of the disk is present with a superimposed superi jeannine migrating left paracentral protrusion causes medial displacement of the descending L5 nerve root . 2. Mild multilevel degenerative changes are present at other lumbar levels without spinal canal steno sis. Comment: The following findings are so common in adults without low back pain that while we report th eir presence, they must be interpreted with caution and in the context of the clinical situation. (Re chicho Elias et al, Spine 2001) Prevalence of findings in patients without low back pain: Disk degeneration (any evidence): 92% Disk desiccation/T2 signal loss: 83% Disk height loss: 56% Disk bulge: 64% Disk protrusion: 32% Annular tear/high intensity zone: 38% [facility] Referring Provider Line: [phone] SITE ID: [id number]
== END 2017-07-25 14:41 | disposition home or self-care (01) ==
LOC: DI 14:40
PROVIDERS: ATTEND Family Medicine
DX: M47.896 Other spondylosis, lumbar region (principal); M51.26 Other intervertebral disc displacement, lumbar region; M43.16 Spondylolisthesis, lumbar region; M51.36 Other intervertebral disc degeneration, lumbar region
CPT/HCPCS: 72148

== ENCOUNTER 2017-09-21 08:04 | Outpatient (CLI) | payer MEDICARE, OTHER ==
[2017-09-21 09:05] LABS: BUN - BLOOD UREA NITROGEN 16 mg/dL (6-20); CALCIUM 9.1 mg/dL (8.5-10.3); CARBON DIOXIDE - CO2 26 mmol/L (21-32); CHLORIDE 101 mmol/L (101-111); CHOL/HDL RATIO 3.1 (<4.4); CHOLESTEROL 173 mg/dL; CREATININE 0.7 mg/dL (0.4-1.0); GFR - MDRD 81 (>89); GLUCOSE 106 mg/dL (70-100); HDL CHOLESTEROL 55 mg/dL; LDL CHOLESTEROL,CALCULATED 101 mg/dL; LDL/HDL RATIO 1.8 (<4.4); SODIUM 139 mmol/L (135-145); VLDL CHOLESTEROL 17 mg/dL
== END 2017-09-21 08:05 | disposition home or self-care (01) ==
LOC: DI 08:04
PROVIDERS: ATTEND Internal Medicine Interventional Cardiology
DX: I25.810 Atherosclerosis of coronary artery bypass graft(s) without angina pectoris (principal); I34.0 Nonrheumatic mitral (valve) insufficiency; R06.09 Other forms of dyspnea
CPT/HCPCS: 36415; 80048; 80061; 83880; 93306

== ENCOUNTER 2018-04-05 07:55 | Outpatient (CLI) | payer MEDICARE, OTHER ==
[2018-04-05 08:28] LABS: BUN - BLOOD UREA NITROGEN 18 mg/dL (6-20); CALCIUM 8.7 mg/dL (8.5-10.3); CARBON DIOXIDE - CO2 28 mmol/L (21-32); CHLORIDE 103 mmol/L (101-111); CHOL/HDL RATIO 3.2 (<4.4); CHOLESTEROL 166 mg/dL; CREATININE 0.8 mg/dL (0.4-1.0); GFR - MDRD 70 (>89); GLUCOSE 104 mg/dL (70-100); HDL CHOLESTEROL 52 mg/dL; LDL CHOLESTEROL,CALCULATED 99 mg/dL; LDL/HDL RATIO 1.9 (<4.4); SODIUM 137 mmol/L (135-145); VLDL CHOLESTEROL 15 mg/dL
== END 2018-04-05 07:56 | disposition home or self-care (01) ==
LOC: LAB 07:55
PROVIDERS: ATTEND Internal Medicine Interventional Cardiology
DX: I25.810 Atherosclerosis of coronary artery bypass graft(s) without angina pectoris (principal); R06.09 Other forms of dyspnea
CPT/HCPCS: 36415; 80048; 80061; 83721; 83880

== ENCOUNTER 2018-09-21 09:08 | Outpatient (CLI) | payer MEDICARE, OTHER | END 2018-09-21 09:09 | disposition home or self-care (01) | LOC: DI 09:08 | PROVIDERS: ATTEND Internal Medicine Interventional Cardiology | DX: I25.708 Atherosclerosis of coronary artery bypass graft(s), unspecified, with other forms of angina pectoris (principal); I34.0 Nonrheumatic mitral (valve) insufficiency | CPT/HCPCS: 93306 ==

== ENCOUNTER 2018-10-14 08:46 | Outpatient (CLI) | payer MEDICARE, OTHER ==
[2018-10-14 09:15] LABS: BUN - BLOOD UREA NITROGEN 18 mg/dL (6-20); CARBON DIOXIDE - CO2 29 mmol/L (21-32); CHLORIDE 101 mmol/L (101-111); CHOL/HDL RATIO 2.8 (<4.4); CHOLESTEROL 147 mg/dL; CREATININE 0.7 mg/dL (0.4-1.0); GFR - MDRD 81 (>89); GLUCOSE 108 mg/dL (70-100); HDL CHOLESTEROL 53 mg/dL; LDL CHOLESTEROL,CALCULATED 77 mg/dL; LDL/HDL RATIO 1.5 (<4.4); SODIUM 141 mmol/L (135-145); VLDL CHOLESTEROL 17 mg/dL
== END 2018-10-14 08:47 | disposition home or self-care (01) ==
LOC: LAB 08:46
PROVIDERS: ATTEND Internal Medicine Interventional Cardiology
DX: I25.810 Atherosclerosis of coronary artery bypass graft(s) without angina pectoris (principal)
CPT/HCPCS: 36415; 80048; 80061; 83721

== ENCOUNTER 2019-03-22 08:16 | Outpatient (CLI) | payer MEDICARE, OTHER ==
[2019-03-22 09:14] LABS: BASOPHILS # (AUTO) 0.1 10^3/uL (0.0-0.1); BASOPHILS % (AUTO) 1.3 %; EOSINOPHILS # (AUTO) 0.3 10^3/uL (0.0-0.7); HGB - HEMOGLOBIN 10.7 g/dL (12.0-16.0); LYMPHOCYTES # (AUTO) 2.1 10^3/uL (1.5-3.5); LYMPHOCYTES % (AUTO) 34.7 %; MEAN CORPUSCULAR HEMOGLOBIN 28.7 pg (27.0-31.0); MEAN CORPUSCULAR HGB CONC 31.7 g/dL (32.0-36.0); MEAN CORPUSCULAR VOLUME 90.6 fL (81.0-99.0); MEAN PLATELET VOLUME 11.1 fL (7.9-10.8); MONOCYTES # (AUTO) 0.8 10^3/uL (0.0-1.0); MONOCYTES % (AUTO) 12.9 %; NEUTROPHILS # (AUTO) 2.7 10^3/uL (1.5-6.6); NEUTROPHILS % (AUTO) 45.8 %; PLT - PLATELET COUNT 251 10^3/uL (130-450); RED BLOOD COUNT 3.73 10^6/uL (4.20-5.40); RED CELL DISTRIBUTION WIDTH 15.2 % (12.0-15.0)
[2019-03-22 09:34] LABS: ALBUMIN 3.4 g/dL (3.2-5.5); ALBUMIN/GLOBULIN RATIO 0.9 (1.0-2.2); ALKALINE PHOSPHATASE 76 IU/L (42-121); ALT ALANINE AMINOTRANSFERASE 221 IU/L (10-60); AST ASPARTATE AMINOTRANSFERASE 236 IU/L (10-42); BILIRUBIN,TOTAL 0.7 mg/dL (0.2-1.0); BUN - BLOOD UREA NITROGEN 16 mg/dL (6-20); CALCIUM 8.6 mg/dL (8.5-10.3); CARBON DIOXIDE - CO2 27 mmol/L (21-32); CHLORIDE 104 mmol/L (101-111); CHOL/HDL RATIO 2.8 (<4.4); CHOLESTEROL 116 mg/dL; CREATININE 0.7 mg/dL (0.4-1.0); GFR - MDRD 81 (>89); GLUCOSE 103 mg/dL (70-100); HDL CHOLESTEROL 41 mg/dL; LDL CHOLESTEROL,CALCULATED 62 mg/dL; LDL/HDL RATIO 1.5 (<4.4); SODIUM 140 mmol/L (135-145); TOTAL PROTEIN 7.3 g/dL (6.7-8.2); VLDL CHOLESTEROL 13 mg/dL
== END 2019-03-22 08:17 | disposition home or self-care (01) ==
LOC: LAB 08:16
PROVIDERS: ATTEND Physician Assistant Medical
DX: M81.0 Age-related osteoporosis without current pathological fracture (principal); R53.83 Other fatigue; I25.708 Atherosclerosis of coronary artery bypass graft(s), unspecified, with other forms of angina pectoris
CPT/HCPCS: 36415; 80053; 80061; 82306; 82607; 83721; 84443; 85025

== ENCOUNTER 2019-04-06 08:06 | Outpatient (CLI) | payer MEDICARE, OTHER ==
[2019-04-06 08:30] LABS: BASOPHILS # (AUTO) 0.1 10^3/uL (0.0-0.1); BASOPHILS % (AUTO) 1.5 %; EOSINOPHILS # (AUTO) 0.3 10^3/uL (0.0-0.7); EOSINOPHILS % (AUTO) 5.7 %; HGB - HEMOGLOBIN 11.2 g/dL (12.0-16.0); LYMPHOCYTES # (AUTO) 1.9 10^3/uL (1.5-3.5); LYMPHOCYTES % (AUTO) 35.6 %; MEAN CORPUSCULAR HEMOGLOBIN 29.1 pg (27.0-31.0); MEAN CORPUSCULAR HGB CONC 31.7 g/dL (32.0-36.0); MEAN CORPUSCULAR VOLUME 91.7 fL (81.0-99.0); MEAN PLATELET VOLUME 10.4 fL (7.9-10.8); MONOCYTES # (AUTO) 0.6 10^3/uL (0.0-1.0); MONOCYTES % (AUTO) 11.7 %; NEUTROPHILS # (AUTO) 2.5 10^3/uL (1.5-6.6); NEUTROPHILS % (AUTO) 45.3 %; PLT - PLATELET COUNT 258 10^3/uL (130-450); RED BLOOD COUNT 3.85 10^6/uL (4.20-5.40); RED CELL DISTRIBUTION WIDTH 15.7 % (12.0-15.0); WHITE BLOOD COUNT 5.5 x10^3/uL (4.8-10.8)
[2019-04-06 08:48] LABS: ALBUMIN 3.4 g/dL (3.2-5.5); ALKALINE PHOSPHATASE 71 IU/L (42-121); ALT ALANINE AMINOTRANSFERASE 97 IU/L (10-60); AST ASPARTATE AMINOTRANSFERASE 93 IU/L (10-42); BILIRUBIN,DIRECT 0.1 mg/dL (0.1-0.5); BILIRUBIN,TOTAL 0.6 mg/dL (0.2-1.0); BUN - BLOOD UREA NITROGEN 16 mg/dL (6-20); CALCIUM 8.7 mg/dL (8.5-10.3); CARBON DIOXIDE - CO2 26 mmol/L (21-32); CHLORIDE 105 mmol/L (101-111); CHOL/HDL RATIO 3.8 (<4.4); CHOLESTEROL 188 mg/dL; CREATININE 0.7 mg/dL (0.4-1.0); GFR - MDRD 81 (>89); GLUCOSE 104 mg/dL (70-100); HDL CHOLESTEROL 49 mg/dL; LDL CHOLESTEROL,CALCULATED 121 mg/dL; LDL/HDL RATIO 2.5 (<4.4); SODIUM 140 mmol/L (135-145); TOTAL PROTEIN 7.2 g/dL (6.7-8.2); VLDL CHOLESTEROL 18 mg/dL
== END 2019-04-06 08:07 | disposition home or self-care (01) ==
LOC: LAB 08:06
PROVIDERS: ATTEND Internal Medicine Interventional Cardiology
DX: R53.83 Other fatigue (principal); M81.0 Age-related osteoporosis without current pathological fracture; I25.810 Atherosclerosis of coronary artery bypass graft(s) without angina pectoris; E78.5 Hyperlipidemia, unspecified
CPT/HCPCS: 36415; 80048; 80061; 80076; 82306; 82607; 83721; 84443; 85025

== ENCOUNTER 2019-05-20 10:08 | Outpatient (CLI) | payer MEDICARE, OTHER ==
--- NOTE | 2019-05-23 13:27 | DEXA Report ---
Reason: OSTEOPOROSIS Procedure Date: 05/20/2019 Accession Number: [id number] / [id number] Procedure: DEX - Dexa Spine and/or Hip CPT Code: FULL RESULT: EXAM: Dexa Spine and/or Hip DATE: 05/20/2019 11:17 AM CLINICAL HISTORY: Osteopenia follow-up TECHNIQUE: Dual energy x-ray absorptiometry (DXA) was performed on a [employer] System. Regions measured are the AP Spine, femoral neck, and if needed forearm. COMPARISON: 05/26/2016 In accordance with the International Society for Clinical Densitometry (ISCD) guidelines, data from previous exams may be reanalyzed using current recommendations and techniques. This is done to allow a more accurate basis for comparison with the current study. FINDINGS: The data for the lumbar spine is as follows: BMD (g/cm/cm) T-SCORE Z-SCORE REGION L1 0.904 -1.9 0.1 L2 1.080 -1.0 1.0 L3 1.056 -1.2 0.8 L4 1.023 -1.5 0.5 TOTAL 1.019 -1.3 0.6 NOTE: All evaluable vertebrae are used for classification The data for the hip is as follows: BMD (g/cm/cm) T-SCORE Z-SCORE REGION Neck 0.696 -2.5 -0.3 TOTAL 0.713 -2.3 -0.3 NOTE: The femoral neck or total proximal femur, whichever is lowest, is used for classification. DXA RESULTS SUMMARY: Spine SCAN DATE AGE BMD CHANGE VS CHANGE VS PREVIOUS PREVIOUS % 5/20[birth year]2019 [age] 1.019 0.098* 10.6* 05/26/2016 75.6 0[age]921 * Denotes significant change at the 95% confidence level. Denotes dissimilar scan types or analysis methods. DXA RESULTS SUMMARY: Hip SCAN DATE AGE BMD CHANGE VS CHANGE VS PREVIOUS PREVIOUS % 5/20/2019 78.6 0.713 -0.079* -10.0* 05/26/2016 75.6 0.792 * Denotes significant change at the 95% confidence level. Denotes dissimilar scan types or analysis methods. IMPRESSION: THE WHO CLASSIFICATION BASED ON THE INTERNATIONAL REFERENCE STANDARD IS OSTEOPOROSIS, REFERENCE LEFT FEMORAL NECK. THE FRACTURE RISK IS HIGH. RECOMMENDATION: Patients with diagnosis of osteoporosis or osteopenia should have regular bone mineral density assessment. For those eligible for Medicare, routine testing is allowed once every 2 years. Testing frequency can be increased for patients who have rapidly progressing disease or for those who are receiving medical therapy to restore bone mass. COMMENT: World Health Organization (WHO) definitions for osteoporosis and osteopenia: NORMAL BMD: T-score at -1.0 or higher, fracture risk is low OSTEOPENIA BMD: T-score between -1.0 and -2.5, fracture risk is increased. OSTEOPOROSIS BMD: T-score at -2.5 or lower, fracture risk is high. National Osteoporosis Foundation recommends: 1. Obtain adequate dietary calcium (at least 1200 mg per day) and vitamin D (400-800 international units per day). 2. Participate, as appropriate, in regular weightbearing and muscle-strengthening exercise. 3. Avoid tobacco use and reduce alcohol and caffeine intake. 4. For more detailed information see the website at www.NOF.org.
== END 2019-05-20 10:09 | disposition home or self-care (01) ==
LOC: DI 10:08
PROVIDERS: ATTEND Physician Assistant Medical
DX: M81.0 Age-related osteoporosis without current pathological fracture (principal)
CPT/HCPCS: 77080

== ENCOUNTER 2019-05-20 10:09 | Outpatient (CLI) | payer MEDICARE, OTHER ==
--- NOTE | 2019-05-24 09:33 | Mammography Report ---
Reason: SCREENING MAMMO Procedure Date: 05/20/2019 Accession Number: [id number] / [id number] Procedure: ANNABELLE - Screening Mammo w/Marv CPT Code: FULL RESULT: EXAM: Screening Mammo w/Marv DATE: 05/20/2019 11:05 AM CLINICAL HISTORY: Routine screening TECHNIQUE: (B) - Bilateral CC and MLO views were obtained. COMPARISON: 07/07/2017, 06/14/2015, 04/10/2014 PARENCHYMAL PATTERN: (A) - The breasts demonstrate scattered fibroglandular densities bilaterally. FINDINGS: No significant interval change. There are no suspicious masses, calcifications, or areas of distortion. Multiple bilateral benign-appearing axillary lymph nodes are again noted. IMPRESSION: Negative examination. BI-RADS category 1. RECOMMENDATION: (ANNUAL) - Recommend routine annual screening mammography. BI-RADS CATEGORY: (1) - Negative. STANDARD QUALIFYING STATEMENTS: 1. This examination was not reviewed with the aid of Computer-Aided Detection (CAD). 2. A negative or benign imaging report should not preclude biopsy if clinically suspicious findings are present. 3. Dense breasts may obscure an underlying neoplasm. 4. This examination was reviewed with the aid of 3D breast imaging (tomosynthesis).
== END 2019-05-20 10:10 | disposition home or self-care (01) ==
LOC: DI 10:09
DX: Z12.31 Encounter for screening mammogram for malignant neoplasm of breast (principal)
CPT/HCPCS: 77063; 77067

== ENCOUNTER 2019-05-23 07:51 | Outpatient (CLI) | payer MEDICARE, OTHER ==
[2019-05-23 09:00] LABS: ALBUMIN 3.6 g/dL (3.2-5.5); BILIRUBIN,DIRECT 0.1 mg/dL (0.1-0.5); BILIRUBIN,TOTAL 0.7 mg/dL (0.2-1.0)
== END 2019-05-23 07:52 | disposition home or self-care (01) ==
LOC: LAB 07:51
PROVIDERS: ATTEND Internal Medicine Interventional Cardiology
DX: I25.810 Atherosclerosis of coronary artery bypass graft(s) without angina pectoris (principal)
CPT/HCPCS: 36415; 80076

== ENCOUNTER 2020-04-19 07:57 | Outpatient (CLI) | payer MEDICARE, OTHER ==
[2020-04-19 08:30] LABS: ALBUMIN 4.1 g/dL (3.2-5.5); ALBUMIN/GLOBULIN RATIO 1.3 (1.0-2.2); ALKALINE PHOSPHATASE 42 IU/L (42-121); ALT ALANINE AMINOTRANSFERASE 21 IU/L (10-60); AST ASPARTATE AMINOTRANSFERASE 25 IU/L (10-42); BILIRUBIN,DIRECT 0.1 mg/dL (0.1-0.5); BILIRUBIN,TOTAL 0.6 mg/dL (0.2-1.0); BUN - BLOOD UREA NITROGEN 17 mg/dL (6-20); CALCIUM 9.5 mg/dL (8.5-10.3); CARBON DIOXIDE - CO2 30 mmol/L (21-32); CHLORIDE 97 mmol/L (101-111); CHOL/HDL RATIO 3.9 (<4.4); CHOLESTEROL 210 mg/dL; CREATININE 0.8 mg/dL (0.4-1.0); GLUCOSE 107 mg/dL (70-100); HDL CHOLESTEROL 54 mg/dL; LDL CHOLESTEROL,CALCULATED 139 mg/dL; LDL/HDL RATIO 2.6 (<4.4); SODIUM 140 mmol/L (135-145); TOTAL PROTEIN 7.3 g/dL (6.7-8.2); VLDL CHOLESTEROL 17 mg/dL
== END 2020-04-19 07:58 | disposition home or self-care (01) ==
LOC: LAB 07:57
PROVIDERS: ATTEND Internal Medicine Interventional Cardiology
DX: I25.2 Old myocardial infarction (principal); E78.5 Hyperlipidemia, unspecified; R74.8 Abnormal levels of other serum enzymes
CPT/HCPCS: 36415; 80053; 80061; 82248; 83721

== ENCOUNTER 2020-05-15 08:19 | Outpatient (CLI) | payer MEDICARE, OTHER ==
[2020-05-15 09:14] LABS: BILIRUBIN,DIRECT 0.2 mg/dL (0.1-0.5); BILIRUBIN,TOTAL 0.8 mg/dL (0.2-1.0); TOTAL PROTEIN 7.1 g/dL (6.7-8.2)
== END 2020-05-15 08:20 | disposition home or self-care (01) ==
LOC: LAB 08:19
PROVIDERS: ATTEND Internal Medicine Interventional Cardiology
DX: I25.2 Old myocardial infarction (principal); E78.5 Hyperlipidemia, unspecified; R74.8 Abnormal levels of other serum enzymes
CPT/HCPCS: 36415; 80076

== ENCOUNTER 2020-07-02 08:10 | Outpatient (CLI) | payer MEDICARE, OTHER ==
[2020-07-02 08:52] LABS: ALBUMIN 3.9 g/dL (3.2-5.5); ALKALINE PHOSPHATASE 37 IU/L (42-121); ALT ALANINE AMINOTRANSFERASE 19 IU/L (10-60); AST ASPARTATE AMINOTRANSFERASE 23 IU/L (10-42); BILIRUBIN,DIRECT 0.1 mg/dL (0.1-0.5); BILIRUBIN,TOTAL 0.5 mg/dL (0.2-1.0); CHOL/HDL RATIO 3.1 (<4.4); CHOLESTEROL 181 mg/dL; HDL CHOLESTEROL 58 mg/dL; LDL CHOLESTEROL,CALCULATED 104 mg/dL; LDL/HDL RATIO 1.8 (<4.4); TOTAL PROTEIN 6.9 g/dL (6.7-8.2); VLDL CHOLESTEROL 19 mg/dL
== END 2020-07-02 08:11 | disposition home or self-care (01) ==
LOC: LAB 08:10
PROVIDERS: ATTEND Internal Medicine Interventional Cardiology
DX: I25.2 Old myocardial infarction (principal); E78.5 Hyperlipidemia, unspecified; R74.8 Abnormal levels of other serum enzymes
CPT/HCPCS: 36415; 80061; 80076; 83721

== ENCOUNTER 2021-01-07 07:58 | Outpatient (CLI) | payer MEDICARE, OTHER ==
[2021-01-07 08:37] LABS: AST ASPARTATE AMINOTRANSFERASE 24 IU/L (10-42); CHOL/HDL RATIO 2.7 (<4.4); CHOLESTEROL 164 mg/dL; HDL CHOLESTEROL 61 mg/dL; LDL CHOLESTEROL,CALCULATED 84 mg/dL; LDL/HDL RATIO 1.4 (<4.4); TRIGLYCERIDES 94 mg/dL; VLDL CHOLESTEROL 19 mg/dL
== END 2021-01-07 07:59 | disposition home or self-care (01) ==
LOC: LAB 07:58
PROVIDERS: ATTEND Internal Medicine Interventional Cardiology
DX: I25.2 Old myocardial infarction (principal)
CPT/HCPCS: 36415; 80061; 83721; 84450

== ENCOUNTER 2021-01-11 08:05 | Outpatient (CLI) | payer MEDICARE, OTHER ==
[2021-01-11 08:17] LABS: BASOPHILS # (AUTO) 0.1 10^3/uL (0.0-0.1); BASOPHILS % (AUTO) 1.2 %; EOSINOPHILS # (AUTO) 0.4 10^3/uL (0.0-0.7); EOSINOPHILS % (AUTO) 5.9 %; HCT - HEMATOCRIT 36.8 % (37.0-47.0); HGB - HEMOGLOBIN 12.2 g/dL (12.0-16.0); LYMPHOCYTES # (AUTO) 2.4 10^3/uL (1.5-3.5); LYMPHOCYTES % (AUTO) 40.6 %; MEAN CORPUSCULAR HEMOGLOBIN 32.6 pg (27.0-31.0); MEAN CORPUSCULAR HGB CONC 33.2 g/dL (32.0-36.0); MEAN CORPUSCULAR VOLUME 98.4 fL (81.0-99.0); MEAN PLATELET VOLUME 10.1 fL (7.9-10.8); MONOCYTES # (AUTO) 0.7 10^3/uL (0.0-1.0); MONOCYTES % (AUTO) 10.9 %; NEUTROPHILS # (AUTO) 2.5 10^3/uL (1.5-6.6); NEUTROPHILS % (AUTO) 41.2 %; PLT - PLATELET COUNT 240 10^3/uL (130-450); RED BLOOD COUNT 3.74 10^6/uL (4.20-5.40); RED CELL DISTRIBUTION WIDTH 12.3 % (12.0-15.0)
[2021-01-11 08:30] LABS: ALBUMIN 4.1 g/dL (3.2-5.5); ALBUMIN/GLOBULIN RATIO 1.5 (1.0-2.2); BILIRUBIN,TOTAL 0.7 mg/dL (0.2-1.0); CREATININE 0.8 mg/dL (0.4-1.0); POTASSIUM 4.4 mmol/L (3.5-5.0); TOTAL PROTEIN 6.9 g/dL (6.7-8.2)
[2021-01-11 08:47] LABS: THYROID STIMULATING HORMONE 1.53 uIU/mL (0.34-5.60)
[2021-01-11 08:53] LABS: FERRITIN 81.8 ng/mL (11.0-306.8)
== END 2021-01-11 08:06 | disposition home or self-care (01) ==
LOC: LAB 08:05
PROVIDERS: ATTEND Physician Assistant Medical
DX: D64.9 Anemia, unspecified (principal); R74.8 Abnormal levels of other serum enzymes; R53.83 Other fatigue
CPT/HCPCS: 36415; 80053; 82306; 82607; 82728; 84443; 85025

== ENCOUNTER 2021-10-30 07:44 | Outpatient (CLI) | payer MEDICARE, OTHER ==
[2021-10-30 09:05] LABS: ALBUMIN 4.3 g/dL (3.2-5.5); ALBUMIN/GLOBULIN RATIO 1.3 (1.0-2.2); ALKALINE PHOSPHATASE 37 IU/L (42-121); ALT ALANINE AMINOTRANSFERASE 19 IU/L (10-60); AST ASPARTATE AMINOTRANSFERASE 26 IU/L (10-42); BILIRUBIN,TOTAL 0.8 mg/dL (0.2-1.0); BUN - BLOOD UREA NITROGEN 21 mg/dL (6-20); CALCIUM 9.3 mg/dL (8.5-10.3); CARBON DIOXIDE - CO2 29 mmol/L (21-32); CHLORIDE 102 mmol/L (101-111); CHOL/HDL RATIO 2.9 (<4.4); CHOLESTEROL 188 mg/dL; CREATININE 0.8 mg/dL (0.4-1.0); GFR - MDRD 69 (>89); GLUCOSE 108 mg/dL (70-100); HDL CHOLESTEROL 64 mg/dL; LDL CHOLESTEROL,CALCULATED 105 mg/dL; LDL/HDL RATIO 1.6 (<4.4); POTASSIUM 4.3 mmol/L (3.5-5.0); SODIUM 140 mmol/L (135-145); TOTAL PROTEIN 7.5 g/dL (6.7-8.2); TRIGLYCERIDES 93 mg/dL; VLDL CHOLESTEROL 19 mg/dL
== END 2021-10-30 07:45 | disposition home or self-care (01) ==
LOC: DI 07:44
PROVIDERS: ATTEND Internal Medicine Interventional Cardiology
DX: I11.9 Hypertensive heart disease without heart failure (principal); I34.0 Nonrheumatic mitral (valve) insufficiency; I25.2 Old myocardial infarction; I49.3 Ventricular premature depolarization
CPT/HCPCS: 36415; 80053; 80061; 83721; 93306

== ENCOUNTER 2022-10-29 08:08 | Outpatient (CLI) | payer MEDICARE, OTHER ==
[2022-10-29 08:35] LABS: BUN - BLOOD UREA NITROGEN 19 mg/dL (6-20); CALCIUM 9.1 mg/dL (8.5-10.3); CARBON DIOXIDE - CO2 29 mmol/L (21-32); CHLORIDE 100 mmol/L (101-111); CHOLESTEROL 173 mg/dL; CREATININE 0.8 mg/dL (0.4-1.0); GFR - MDRD 69 (>89); GLUCOSE 109 mg/dL (70-100); HDL CHOLESTEROL 57 mg/dL; LDL CHOLESTEROL,CALCULATED 93 mg/dL; LDL/HDL RATIO 1.6 (<4.4); POTASSIUM 4.1 mmol/L (3.5-5.0); SODIUM 138 mmol/L (135-145); TRIGLYCERIDES 116 mg/dL; VLDL CHOLESTEROL 23 mg/dL
== END 2022-10-29 08:09 | disposition home or self-care (01) ==
LOC: LAB 08:08
PROVIDERS: ATTEND Internal Medicine Interventional Cardiology
DX: I25.2 Old myocardial infarction (principal)
CPT/HCPCS: 36415; 80048; 80061; 83721

== ENCOUNTER 2022-12-05 08:09 | Day surgery (SDC) | payer MEDICARE, OTHER ==
[2022-12-05] MEDS ORDERED: LACTATED RINGERS 1,000 ML IV ONE ×2 (08:41→09:54)
--- NOTE | 2022-12-05 08:41 | ANESTHESIA ---
Pre-Anesthesia VS, & Labs - Diagnosis positive cologuard - Procedure colonoscopy Vital Signs: Temp Pulse Resp BP Pulse Ox O2 Flow Rate 36.2 C L 72 15 151/70 H 99 12/05/22 08:29 12/05/22 08:29 12/05/22 08:29 12/05/22 08:29 12/05/22 08:29 Height: 5 ft 5 in Weight (kg): 59 kg Body Mass Index: 21.6 BMI Classification: Normal - NPO >8 hours - Is Patient ?: No - Lab Results Lab results reviewed: Yes Home Medications and Allergies Home Medications: Ambulatory Orders Ezetimibe [Zetia] 10 mg PO QD 12/04/22 Furosemide [Lasix] 1 tab PO DAILY 12/04/22 Pravastatin Sodium 20 mg PO DAILY 12/04/22 Rivaroxaban [Xarelto] 1 tab PO DAILY 12/04/22 Aspirin Chewable [St Zia Aspirin] 81 mg ORAL DAILY 02/23/17 Metoprolol Tartrate 25 mg ORAL BID 02/23/17 lisinopriL [Lisinopril] 2.5 mg ORAL DAILY 02/23/17 Ezetimibe [Zetia] 10 mg PO QD 12/04/22 Furosemide [Lasix] 1 tab PO DAILY 12/04/22 Pravastatin Sodium 20 mg PO DAILY 12/04/22 Rivaroxaban [Xarelto] 1 tab PO DAILY 12/04/22 Allergies/Adverse Reactions: Allergies Allergy/AdvReac Type Severity Reaction Status Date / Time Sulfa (Sulfonamide Allergy Intermediate Rash Verified 12/04/22 12:42 Antibiotics) Anes History & Medical History - Anesthetic History Anesthesia Complications: reports: No previous complications Family history of Anesthesia Complications: Denies Family history of Malignant Hyperthermia: Denies - Medical History Cardiovascular: reports: Congestive heart failure, Hypertension, Coronary artery disease, [place] Pulmonary: reports: None Gastrointestinal: reports: None Urinary: reports: None Musculoskeletal: reports: Osteoarthritis Endocrine/Autoimmune: reports: None Skin: reports: None Smoking Status: Never smoker - Surgical History General: reports: Colonoscopy Eyes Ears Nose Throat (EENT): reports: Cataracts Cardiothoracic: reports: CABG, Coronary stent Gynecologic: reports: Tubal ligation Orthopedic: reports: Arthroscopic surgery Exam General: Alert, Oriented x3, Cooperative Dental: Dentures full Upper, Dentures full Lower Mouth Openin Fingerbreadth Neck Mobility: Normal Mallampati classification: II Thyromental Distance: 4-6 cm Respiratory: Lungs clear, Normal breath sounds, No respiratory distress Cardiovascular: Regular rate Neurological: Normal speech Mental/Cognitive Status: Alert/Oriented X3, Normal for patient Cognitive Status: Within normal limits Plan Anesthesia Type: Total IV Consent for Procedure(s) Verified and Reviewed: Yes Code Status: Attempt Resuscitation ASA classification: 3-Severe systemic disease Is this case an emergency?: No
[2022-12-05] MEDS ORDERED: PROPOFOL 500 MG/50 ML 500 MG/50 ML VIAL ONE (08:43)
--- NOTE | 2022-12-05 09:18 | HISTORY & PHYSICAL EXAMINATION ---
Chief Complaint - Chief Complaint Chief Complaint: abnormal stool test History of Present Illness - History Obtained From Records Reviewed: yes History obtained from: pt Exam Limitations: none - History of Present Illness HPI Comment/Other: no gi symptoms or anemia positive cologuard History - Past Medical History Cardiovascular: reports: Congestive heart failure, Hypertension, Coronary artery disease, [place] Respiratory: reports: None Endocrine/Autoimmune: reports: None GI: reports: None : reports: None HEENT: reports: None Psych: reports: None Musculoskeletal: reports: Osteoarthritis Derm: reports: None MRSA Hx?: No - Past Surgical History General: reports: Colonoscopy Ortho: reports: 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 Cardiovascular: reports: CABG, Coronary stent HEENT: reports: Cataracts - POLST Patient has POLST: No Meds/Allgy - Home Medications Home Medications: Ambulatory Orders Medication Instructions Recorded Confirmed Aspirin Chewable [St Zia 81 mg ORAL DAILY 02/23/17 12/04/22 Aspirin] Metoprolol Tartrate 25 mg ORAL BID 02/23/17 12/05/22 lisinopriL [Lisinopril] 2.5 mg ORAL DAILY 02/23/17 12/04/22 Potassium Chloride 10 meq PO DAILY #60 capsule.er 02/24/17 12/04/22 Ezetimibe [Zetia] 10 mg PO QD 12/04/22 12/04/22 Furosemide [Lasix] 1 tab PO DAILY 12/04/22 12/04/22 Pravastatin Sodium 20 mg PO DAILY 12/04/22 12/04/22 Rivaroxaban [Xarelto] 1 tab PO DAILY 12/04/22 12/04/22 - Allergies Allergies/Adverse Reactions: Allergies Allergy/AdvReac Type Severity Reaction Status Date / Time Sulfa (Sulfonamide Allergy Intermediate Rash Verified 12/04/22 12:42 Antibiotics) Review of Systems - Other Findings Other Findings: 10 pt ros as above otherwise unremarkable Exam - Vital Signs Reviewed Vital Signs: Yes Vital Signs: Vital Signs x48h Temp Pulse Resp BP Pulse Ox 12/05/22 08:29 36.2 C L 72 15 151/70 H 99 - Physical Exam General Appearance: positive: Alert Eyes Bilateral: positive: EOMI, No scleral icterus ENT: positive: No signs of dehydration Neck: positive: No JVD, Trachea midline Respiratory: positive: No respiratory distress, Breath sounds nml Cardiovascular: positive: Regular rate & rhythm Abdomen: positive: Non-tender, No distention Neurologic/Psychiatric: positive: Oriented x3 Conclusion/Plan - Problem List (1) Abnormal stool test Conclusion/Plan: positive cologuard plan colonoscopy. parq held and consent obtained - Lab Results Lab results reviewed: Yes
[2022-12-05 10:12] VITALS: BP 114/63
--- NOTE | 2022-12-05 10:25 | ANESTHESIA POST OP EVALUATION ---
Anesthesia Post Eval - Post Anesthesia Eval Vitals: Last Vital Signs Temp 36.6 C 12/05/22 09:54 Pulse 69 12/05/22 10:11 Resp 16 12/05/22 10:11 BP 114/63 12/05/22 10:11 Pulse Ox 99 12/05/22 10:11 O2 Flow Rate CV Function Including HR & BP: Stable Pain Control: Satisfactory Nausea & Vomiting: Negative Mental Status: Baseline Respiratory Status: Airway Patent Hydration Status: Satisfactory Anesthesia Complications: None
== END 2022-12-05 08:10 | disposition home or self-care (01) ==
LOC: SDS 08:09
PROVIDERS: ATTEND Surgery
PROC: 0DBM8ZZ Excision of Descending Colon, Via Natural or Artificial Opening Endoscopic (ICD-10-PCS; principal; 2022-12-05 09:15)
DX: Z12.11 Encounter for screening for malignant neoplasm of colon (principal); D12.4 Benign neoplasm of descending colon; R19.5 Other fecal abnormalities; K57.30 Diverticulosis of large intestine without perforation or abscess without bleeding; I11.0 Hypertensive heart disease with heart failure; I50.9 Heart failure, unspecified; I25.10 Atherosclerotic heart disease of native coronary artery without angina pectoris; I25.2 Old myocardial infarction
CPT/HCPCS: 45385; J7120

== ENCOUNTER 2023-07-03 09:19 | Day surgery (SDC) | payer MEDICARE, OTHER ==
[2023-07-03] MEDS ORDERED: LACTATED RINGERS 1,000 ML IV ONE (09:44)
[2023-07-03] MEDS ORDERED: PROPOFOL 500 MG/50 ML 500 MG/50 ML VIAL ONE (09:47)
--- NOTE | 2023-07-03 10:01 | ANESTHESIA ---
Pre-Anesthesia VS, & Labs - Diagnosis Screening exam, history of polyps - Procedure colonoscopy Vital Signs: Temp Pulse Resp BP Pulse Ox O2 Flow Rate 36.2 C L 55 L 12 139/60 H 98 07/03/23 09:44 07/03/23 09:44 07/03/23 09:44 07/03/23 09:44 07/03/23 09:44 Height: 5 ft 4 in Weight (kg): 58.1 kg Body Mass Index: 21.9 BMI Classification: Normal - NPO >8 hours - Is Patient ?: No Home Medications and Allergies Aspirin Chewable [St Zia Aspirin] 81 mg ORAL DAILY 02/23/17 Metoprolol Tartrate 25 mg ORAL BID 02/23/17 lisinopriL [Lisinopril] 2.5 mg ORAL DAILY 02/23/17 Ezetimibe [Zetia] 10 mg PO QD 12/04/22 Furosemide [Lasix] 1 tab PO DAILY 12/04/22 Pravastatin Sodium 20 mg PO DAILY 12/04/22 Rivaroxaban [Xarelto] 1 tab PO DAILY 12/04/22 Allergies/Adverse Reactions: Allergies Allergy/AdvReac Type Severity Reaction Status Date / Time Sulfa (Sulfonamide Allergy Intermediate Rash Verified 07/03/23 09:50 Antibiotics) Anes History & Medical History - Anesthetic History Anesthesia Complications: reports: No previous complications - Medical History Cardiovascular: reports: Hypertension, High cholesterol, Coronary artery disease, [place], Valve disorder Pulmonary: reports: None Gastrointestinal: reports: None Urinary: reports: None Neuro: reports: None Musculoskeletal: reports: Osteoarthritis Endocrine/Autoimmune: reports: None Skin: reports: None Smoking Status: Never smoker Psychosocial: reports: No issues indicated History of Cancer?: No - Surgical History General: reports: Colonoscopy Eyes Ears Nose Throat (EENT): reports: Tonsil/Adenoidectomy Cardiothoracic: reports: CABG, Coronary stent Gynecologic: reports: Tubal ligation Orthopedic: reports: Arthroscopic surgery Results - Echo Results Echo Results: Report reviewed (2021 EF 35-40%, MV regurg) Exam General: Alert, Oriented x3, Cooperative, No acute distress Dental: Dentures full Upper, Dentures full Lower Mouth Openin Fingerbreadth Neck Mobility: Normal Mallampati classification: II Thyromental Distance: 4-6 cm Mental/Cognitive Status: Alert/Oriented X3, Normal for patient Plan Anesthesia Type: General, Total IV Consent for Procedure(s) Verified and Reviewed: Yes Code Status: Attempt Resuscitation ASA classification: 3-Severe systemic disease Is this case an emergency?: No
--- NOTE | 2023-07-03 10:23 | HISTORY & PHYSICAL EXAMINATION ---
Chief Complaint - Chief Complaint Chief Complaint: here for surveillance colonoscopy History of Present Illness - History Obtained From Records Reviewed: yes History obtained from: pt Exam Limitations: none - History of Present Illness HPI Comment/Other: history large flat adenoma descending colon removed piecemeal. 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 Cardiovascular: reports: CABG, Coronary stent HEENT: reports: Tonsil/Adenoidectomy - POLST Patient has POLST: No Meds/Allgy - Home Medications Home Medications: Ambulatory Orders Medication Instructions Recorded Confirmed Aspirin Chewable [St Zia 81 mg ORAL DAILY 02/23/17 07/02/23 Aspirin] Metoprolol Tartrate 25 mg ORAL BID 02/23/17 07/02/23 lisinopriL [Lisinopril] 2.5 mg ORAL DAILY 02/23/17 07/02/23 Potassium Chloride 10 meq PO DAILY #60 capsule.er 02/24/17 07/02/23 Ezetimibe [Zetia] 10 mg PO QD 12/04/22 07/02/23 Furosemide [Lasix] 1 tab PO DAILY 12/04/22 07/02/23 Pravastatin Sodium 20 mg PO DAILY 12/04/22 07/02/23 Rivaroxaban [Xarelto] 1 tab PO DAILY 12/04/22 07/02/23 - Allergies Allergies/Adverse Reactions: Allergies Allergy/AdvReac Type Severity Reaction Status Date / Time Sulfa (Sulfonamide Allergy Intermediate Rash Verified 07/03/23 09:50 Antibiotics) Review of Systems - Other Findings Other Findings: 10 pt ros as above otherwise unremarkable Exam - Vital Signs Vital Signs: Vital Signs x48h Temp Pulse Resp BP Pulse Ox 07/03/23 09:44 36.2 C L 55 L 12 139/60 H 98 - Physical Exam General Appearance: positive: No acute distress, Alert Eyes Bilateral: positive: PERRL, EOMI Neck: positive: No JVD, Trachea midline Respiratory: positive: No respiratory distress Cardiovascular: positive: Irregularly irregular Abdomen: positive: Non-tender, No distention Neurologic/Psychiatric: positive: Oriented x3 Conclusion/Plan - Problem List (1) History of adenomatous polyp of colon Conclusion/Plan: plan colonoscopy. parq held and consent obtained
[2023-07-03] MEDS ORDERED: LACTATED RINGERS 400 ML IV ONE (11:00)
[2023-07-03 11:08] VITALS: O2SAT 99
[2023-07-03 11:45] VITALS: BP 122/76
--- NOTE | 2023-07-03 15:05 | ANESTHESIA POST OP EVALUATION ---
Anesthesia Post Eval - Post Anesthesia Eval Vitals: Last Vital Signs Temp 36.5 C 07/03/23 11:29 Pulse 64 07/03/23 11:29 Resp 14 07/03/23 11:29 BP 122/76 07/03/23 11:29 Pulse Ox 99 07/03/23 11:29 O2 Flow Rate CV Function Including HR & BP: Stable Pain Control: Satisfactory Nausea & Vomiting: Negative Mental Status: Baseline Respiratory Status: Airway Patent Hydration Status: Satisfactory Anesthesia Complications: None
== END 2023-07-03 09:20 | disposition home or self-care (01) ==
LOC: SDS 09:19
PROVIDERS: ATTEND Surgery
PROC: 0DBH8ZZ Excision of Cecum, Via Natural or Artificial Opening Endoscopic (ICD-10-PCS; principal; 2023-07-03 10:30)
DX: D12.0 Benign neoplasm of cecum (principal); K57.30 Diverticulosis of large intestine without perforation or abscess without bleeding; I25.2 Old myocardial infarction; I25.10 Atherosclerotic heart disease of native coronary artery without angina pectoris; I10 Essential (primary) hypertension
CPT/HCPCS: 45380; J7120

== ENCOUNTER 2023-10-12 08:00 | Outpatient (CLI) | payer MEDICARE, OTHER ==
[2023-10-12 08:40] LABS: BUN - BLOOD UREA NITROGEN 18 mg/dL (6-20); CARBON DIOXIDE - CO2 30 mmol/L (21-32); CHLORIDE 106 mmol/L (101-111); CREATININE 0.8 mg/dL (0.6-1.3); SODIUM 142 mmol/L (135-145)
[2023-10-12 08:41] LABS: CALCIUM 9.1 mg/dL (8.5-10.3); CHOL/HDL RATIO 2.7 (<4.4); CHOLESTEROL 148 mg/dL; GFR - MDRD 69 (>89); GLUCOSE 104 mg/dL (74-104); HDL CHOLESTEROL 55 mg/dL; LDL CHOLESTEROL,CALCULATED 76 mg/dL; LDL/HDL RATIO 1.4 (<4.4); TRIGLYCERIDES 87 mg/dL (48-352); VLDL CHOLESTEROL 17 mg/dL
== END 2023-10-12 08:01 | disposition home or self-care (01) ==
LOC: LAB 08:00
PROVIDERS: ATTEND Internal Medicine Interventional Cardiology
DX: I25.2 Old myocardial infarction (principal)
CPT/HCPCS: 36415; 80048; 80061; 83721

== ENCOUNTER 2023-10-26 13:27 | Outpatient (CLI) | payer MEDICARE, OTHER ==
[2023-10-26 13:49] LABS: BASOPHILS # (AUTO) 0.1 10^3/uL (0.0-0.1); BASOPHILS % (AUTO) 0.8 %; EOSINOPHILS # (AUTO) 0.4 10^3/uL (0.0-0.7); EOSINOPHILS % (AUTO) 5.3 %; HGB - HEMOGLOBIN 12.5 g/dL (12.0-16.0); LYMPHOCYTES % (AUTO) 25.2 %; MEAN CORPUSCULAR HEMOGLOBIN 31.3 pg (27.0-31.0); MEAN CORPUSCULAR HGB CONC 32.1 g/dL (32.0-36.0); MEAN CORPUSCULAR VOLUME 97.7 fL (81.0-99.0); MEAN PLATELET VOLUME 10.4 fL (7.9-10.8); MONOCYTES # (AUTO) 0.7 10^3/uL (0.0-1.0); MONOCYTES % (AUTO) 8.9 %; NEUTROPHILS # (AUTO) 4.6 10^3/uL (1.5-6.6); NEUTROPHILS % (AUTO) 59.7 %; PLT - PLATELET COUNT 263 10^3/uL (130-450); RED BLOOD COUNT 3.99 10^6/uL (4.20-5.40); RED CELL DISTRIBUTION WIDTH 12.5 % (12.0-15.0); WHITE BLOOD COUNT 7.8 x10^3/uL (4.8-10.8)
[2023-10-26 13:59] LABS: ALBUMIN 4.2 g/dL (3.2-5.5); ALBUMIN/GLOBULIN RATIO 1.4 (1.0-2.2); BILIRUBIN,TOTAL 0.4 mg/dL (0.2-1.0); CALCIUM 9.8 mg/dL (8.5-10.3); CREATININE 0.8 mg/dL (0.6-1.3); POTASSIUM 3.9 mmol/L (3.5-4.5); TOTAL PROTEIN 7.2 g/dL (6.4-8.9)
== END 2023-10-26 13:28 | disposition home or self-care (01) ==
LOC: LAB 13:27
PROVIDERS: ATTEND Physician Assistant Medical
DX: D64.9 Anemia, unspecified (principal); R74.8 Abnormal levels of other serum enzymes
CPT/HCPCS: 36415; 80053; 82728; 85025

== ENCOUNTER 2023-12-03 13:22 | Outpatient (CLI) | payer MEDICARE, OTHER ==
--- NOTE | 2023-12-04 09:51 | Mammography Report ---
BILATERAL DIGITAL SCREENING MAMMOGRAM 3D/2D: 12/03/2023 CLINICAL: Routine screening. Comparison is made to exams dated: 07/07/2017 mammogram, 06/14/2015 mammogram, 04/10/2014 mammogram, an d 02/02/2009 mammogram - [facility]. There are scattered areas of fibroglandular density in both breasts (category b / 25%-50% glandular t issue). No significant masses, calcifications, or other findings are seen in either breast. There has been no significant interval change. IMPRESSION: NEGATIVE There is no mammographic evidence of malignancy. A 1 year screening mammogram is recommended. Based on the Tyrer Cuzick model (a risk assessment model) the patient's lifetime risk is 0.6% and her 10 year risk is 0.0%. According to the ACR, ACS, and NCCN guidelines, an annual breast MRI exam ashish g with mammogram is recommended if the patient's lifetime risk is 20% or greater. This exam was interpreted at Station ID: [id number]. NOTE: For mammograms, a report in lay terms will be sent to the patient. Approximately 15% of breast malignancies will not be visualized mammographically. In the management of a palpable breast mass, a negative mammogram must not discourage biopsy of a clinically suspicious lesion. Electronically Signed By: Todd armstrong/rena:12/03/2023 15:50:41 letter sent: No_Letter ACR BI-RADS Category 1: Negative 3341F PARENCHYMAL PATTERN: (A) - The breast(s) demonstrate(s) scattered fibroglandular densities. BI-RADS CATEGORY: (1) - 1 RECOMMENDATION: (ANNUAL) - Recommend routine annual screening mammography. [id number] 1 year screening LATERALITY: (B)
== END 2023-12-03 13:23 | disposition home or self-care (01) ==
LOC: DI 13:22
DX: Z12.31 Encounter for screening mammogram for malignant neoplasm of breast (principal); R92.323 Mammographic fibroglandular density, bilateral breasts